=== PATIENT | female | born 2000 | race Two or more races ===

== ENCOUNTER → 2021-01-03 | Emergency (ER) | payer OTHER ==
[~2021-01-03] VITALS: Ht 154.9 cm; Wt 68.0 kg
== END | disposition left against medical advice (07) ==
LOC: ER 22:45
DX: S61.227A Laceration with foreign body of left little finger without damage to nail, initial encounter (principal); S61.422A Laceration with foreign body of left hand, initial encounter; W26.0XXA Contact with knife, initial encounter; Y93.89 Activity, other specified; Y92.511 Restaurant or cafe as the place of occurrence of the external cause